=== PATIENT | male | born 1950 | race Caucasian/White ===

== ENCOUNTER 2017-06-15 07:42 | Inpatient (IN) | payer MEDICARE, BC ==
[2017-06-15] MEDS: ASPIRIN 325 MG TAB PO (10:39)
[2017-06-15] MEDS: ACETAMINOPHEN 325 MG TAB PO ×2 (10:39→17:56)
[2017-06-15 11:21] LABS: ADD MAN DIFF? NO
[2017-06-15 11:24] LABS: ABNORMAL IP MESSAGE 1; BASOPHILS % 0.2 % (0.0-2.0); HEMATOCRIT 38.4 % (42.0-52.0); HEMOGLOBIN 13.1 g/dl (14.0-18.0); LYMPHOCYTES # 0.6 10^3/ul (0.8-2.9); MEAN CORPUSCULAR HEMOGLOBIN 33.6 pg (29.0-33.0); MEAN CORPUSCULAR HGB CONC 34.1 g/dl (32.0-37.0); MEAN CORPUSCULAR VOLUME 98.5 fl (82.0-101.0); MEAN PLATELET VOLUME 12.2 fl (7.4-10.4); MONOCYTE # 1.4 10^3/ul (0.3-0.9); MONOCYTES % 9.3 % (0.0-11.0); NEUTROPHIL # 12.5 10^3/ul (1.6-7.5); NEUTROPHILS % 85.7 % (39.0-77.0); PLATELET COUNT 120 10^3/UL (140-415); POSITIVE DIFF @See below; RED CELL DISTRIBUTION WIDTH 13.2 % (11.5-14.5)
[2017-06-15 11:24] LABS: WHITE BLOOD COUNT 14.6 10^3/ul (4.8-10.8)
[2017-06-15 11:30] LABS: ADD UMIC YES; UR ASCORBIC ACID NEGATIVE (NEGATIVE); UR BACTERIA FEW /HPF (NONE SEEN); UR BILIRUBIN (Dip) NEGATIVE (NEGATIVE); UR BLOOD (Dip) 2+ mg/dL (NEGATIVE); UR CLARITY CLEAR (CLEAR); UR COLOR YELLOW (YELLOW); UR GLUCOSE (Dip) NEGATIVE (NEGATIVE); UR KETONES (Dip) NEGATIVE (NEGATIVE); UR LEUKOCYTE ESTERASE (Dip) NEGATIVE Leu/ul (NEGATIVE); UR NITRITE (Dip) NEGATIVE (NEGATIVE); UR RBC 2 /HPF (0-5); UR SPECIFIC GRAVITY (Dip) 1.009 (1.003-1.030); UR TOTAL PROTEIN (Dip) 2+ mg/dl (NEGATIVE); UR UROBILINOGEN (Dip) NEGATIVE (NEGATIVE); UR WBC 1 /HPF (0-5)
[2017-06-15] MEDS: CEFEPIME 2GM/50 ML (PMX) 50 ML IVPB (11:41)
[2017-06-15 11:43] LABS: INR 1.19; PROTIME 15.3 Sec (11.9-14.9); PT RATIO 1.2
[2017-06-15 11:44] LABS: LACTIC ACID 1.5 mmol/L (0.5-2.0)
[2017-06-15 11:44] LABS: PARTIAL THROMBOPLASTIN TIME 34.3 Sec (25.0-35.0)
[2017-06-15 11:46] LABS: ALANINE AMINOTRANSFERASE 40 IU/L (13-69); ALBUMIN 4.2 g/dl (3.3-4.9); ALBUMIN/GLOBULIN RATIO 1.23; ALKALINE PHOSPHATASE 76 IU/L (42-121); ANION GAP 19 (8-16); ASPARTATE AMINO TRANSFERASE 35 IU/L (15-46); BILIRUBIN,INDIRECT 0.2 mg/dl (0-1.1); BILIRUBIN,TOTAL 0.2 mg/dl (0.2-1.3); BLOOD UREA NITROGEN 76 mg/dl (7-20); CALCIUM 10.3 mg/dl (8.4-10.2); CARBON DIOXIDE 15 mmol/L (21-31); CHLORIDE 106 mmol/L (97-110); CREATININE 4.84 mg/dl (0.61-1.24); GLUCOSE 105 mg/dl (70-220); SODIUM 135 mmol/L (135-144); TOTAL PROTEIN 7.6 g/dl (6.1-8.1)
[2017-06-15 12:06] LABS: TROPONIN-I 0.914 ng/ml (0.00-0.12)
[2017-06-15] MEDS ORDERED: ENOXAPARIN 80 MG/0.8 ML SYG SC (12:30)
[2017-06-15] MEDS: VANCOMYCIN 1 GM (PMX) 250 ML IVPB (12:34)
[2017-06-15] MEDS ORDERED: ONDANSETRON 4 MG INJ IV (13:00)
[2017-06-15 13:23] LABS: LACTIC ACID 0.8 mmol/L (0.5-2.0)
[2017-06-15] MEDS ORDERED: HYDROCODONE/APAP (5/325) TAB PO (14:30)
[2017-06-15] MEDS ORDERED: DOCUSATE SODIUM 100 MG CAP PO (14:30)
[2017-06-15] MEDS ORDERED: NACL 0.9% 3 ML SYG IV (14:30)
[2017-06-15] MEDS ORDERED: ACETAMINOPHEN 325 MG TAB PO (14:30)
[2017-06-15] MEDS ORDERED: hydrALAzine 20 MG INJ IV (14:30)
[2017-06-15] MEDS ORDERED: MAGNESIUM HYDROXIDE 30ML CUP PO (14:30)
[2017-06-15] MEDS ORDERED: BISACODYL 10 MG SUPP PR (14:30)
[2017-06-15] MEDS ORDERED: ACETAMINOPHEN 650 MG SUPP PR (14:30)
[2017-06-15] MEDS ORDERED: morphine 2 MG INJ IV (14:30)
[2017-06-15] MEDS ORDERED: HEPARIN 1000 UNITS/ML 10 ML INJ IV (15:00)
[2017-06-15 16:27] LABS: LACTIC ACID 2.1 mmol/L (0.5-2.0)
[2017-06-15 16:37] LABS: CREATINE KINASE 544 IU/L (23-200)
[2017-06-15 16:48] LABS: CK INDEX 0.3; TROPONIN-I 0.997 ng/ml (0.00-0.12)
[2017-06-15 16:49] LABS: CK-MB 1.79 ng/ml (0.0-2.4)
[2017-06-15] MEDS: HEPARIN 1000 UNITS/ML 10 ML INJ IV (16:51)
[2017-06-15] MEDS: HEPARIN 25000 UNITS/250 ML 250 ML IV (18:03)
[2017-06-15] MEDS: SEVELAMER CARBONATE 0.8 GM PKT PO (18:05)
[2017-06-15 21:02] LABS: CREATINE KINASE 404 IU/L (23-200)
[2017-06-15 21:12] LABS: CK INDEX 0.4
[2017-06-15 21:13] LABS: CK-MB 1.45 ng/ml (0.0-2.4)
[2017-06-15] MEDS: AZITHROMYCIN 500MG/NS (PMX) 250 ML IVPB (21:47)
[2017-06-15] MEDS: CEFTRIAXONE 2 GM/50 ML (PMX) 50 ML IVPB (21:48)
[2017-06-15] MEDS: SOD CHLORIDE 0.9% 1,000 ML IV (21:49)
[2017-06-15] MEDS: TAMSULOSIN (SR) 0.4 MG CAP PO (21:50)
[2017-06-15] MEDS: ATORVASTATIN 20 MG TAB PO (21:50)
[2017-06-16] MEDS: SALMETEROL/FLUTICASONE 500/50 INHA INH ×3 (00:33→21:08)
[2017-06-16] MEDS: PANTOPRAZOLE (EC) 40 MG TAB PO (05:26)
[2017-06-16] MEDS: HYDROCODONE/APAP (5/325) TAB PO (05:33)
[2017-06-16 08:00] LABS: HEMOGLOBIN A1C 5.5 % (0-5.9)
[2017-06-16] MEDS: NEBIVOLOL 5 MG TAB PO (09:00)
[2017-06-16] MEDS ORDERED: VALSARTAN 160 MG TAB PO (09:00)
[2017-06-16] MEDS: AMLODIPINE 10 MG TAB PO (09:00)
[2017-06-16] MEDS ORDERED: NON-FORMULARY/PATIENT OWN MED (Esomeprazole Mag Trihydrate (Nexium) 40 MG) PO (09:00)
[2017-06-16 09:26] LABS: PARTIAL THROMBOPLASTIN TIME 83.2 Sec (25.0-35.0)
[2017-06-16] MEDS: ASPIRIN (EC) 81 MG TAB PO (09:39)
[2017-06-16] MEDS: SOLIFENACIN 5 MG TAB PO (09:39)
[2017-06-16] MEDS: HYDROXYCHLOROQUINE 200 MG TAB PO (09:39)
[2017-06-16] MEDS: ESCITALOPRAM 10 MG TAB PO (09:40)
[2017-06-16] MEDS: SEVELAMER CARBONATE 0.8 GM PKT PO ×3 (09:40→17:58)
[2017-06-16] MEDS: ALLOPURINOL 100 MG TAB PO (09:40)
[2017-06-16] MEDS: FEBUXOSTAT 40 MG TABLET PO (09:40)
[2017-06-16] MEDS: COLCHICINE 0.6 MG TAB PO (09:40)
[2017-06-16] MEDS: MULTIVIT/CA CARB/B CMPLX/FA TAB PO (09:40)
[2017-06-16] MEDS: FINASTERIDE 5 MG TAB PO (09:40)
[2017-06-16] MEDS: predniSONE 5 MG TAB PO (09:40)
[2017-06-16 09:50] LABS: ALANINE AMINOTRANSFERASE 69 IU/L (13-69); ALBUMIN 3.2 g/dl (3.3-4.9); ALBUMIN/GLOBULIN RATIO 1.06; ALKALINE PHOSPHATASE 56 IU/L (42-121); ANION GAP 19 (8-16); ASPARTATE AMINO TRANSFERASE 65 IU/L (15-46); BLOOD UREA NITROGEN 85 mg/dl (7-20); CALCIUM 9.9 mg/dl (8.4-10.2); CARBON DIOXIDE 15 mmol/L (21-31); CHLORIDE 107 mmol/L (97-110); CHOL/HDL RATIO 2.8 RATIO; CHOLESTEROL 141 mg/dl (100-200); GLUCOSE 107 mg/dl (70-220); HDL CHOLESTEROL 50 mg/dl (30-78); LDL CHOLESTEROL,CALCULATED 66 mg/dl; MAGNESIUM 1.9 mg/dl (1.7-2.5); PHOSPHORUS 4.7 mg/dl (2.5-4.9); SODIUM 136 mmol/L (135-144); TOTAL PROTEIN 6.2 g/dl (6.1-8.1); TRIGLYCERIDES 127 mg/dl (0-149)
[2017-06-16 09:53] LABS: POTASSIUM 5.4 mmol/L (3.5-5.1)
[2017-06-16 11:09] LABS: FREE THYROXINE INDEX (Calc) 2.81 ug/ml (0.65-3.89); T3 UPTAKE 44.6 % (23.5-40.5); T4 (THYROXINE) 6.3 ug/dl (5.5-11.0)
[2017-06-16 15:36] LABS: PARTIAL THROMBOPLASTIN TIME 43.9 Sec (25.0-35.0)
[2017-06-16] MEDS: METOPROLOL (XL) 25 MG TAB PO (15:59)
[2017-06-16] MEDS: SOD CHLORIDE 0.9% 1,000 ML IV (16:02)
[2017-06-16] MEDS ORDERED: ALBUTEROL/IPRATROPIUM (NEB) 3 ML AMP HHN (17:30)
[2017-06-16] MEDS: CEFTRIAXONE 2 GM/50 ML (PMX) 50 ML IVPB (17:58)
[2017-06-16] MEDS: ALBUTEROL/IPRATROPIUM (NEB) 3 ML AMP HHN (19:20)
[2017-06-16] MEDS: HEPARIN 5,000 UNIT/0.5 ML VIAL SC ×2 (21:00→21:09)
[2017-06-16] MEDS: TAMSULOSIN (SR) 0.4 MG CAP PO (21:08)
[2017-06-16] MEDS: ATORVASTATIN 20 MG TAB PO (21:08)
[2017-06-16] MEDS: AZITHROMYCIN 500MG/NS (PMX) 250 ML IVPB (21:11)
[2017-06-16] MEDS: ONDANSETRON 4 MG INJ IV (23:45)
[2017-06-16] MEDS: NA POLYST SULFON 15 GM/60 ML BTL PO (23:46)
[2017-06-17] MEDS: PANTOPRAZOLE (EC) 40 MG TAB PO (05:09)
[2017-06-17] MEDS: SOD CHLORIDE 0.9% 1,000 ML IV ×2 (05:10→21:40)
[2017-06-17] MEDS: ALBUTEROL/IPRATROPIUM (NEB) 3 ML AMP HHN ×3 (08:00→19:18)
[2017-06-17] MEDS: SALMETEROL/FLUTICASONE 500/50 INHA INH ×2 (09:37→21:56)
[2017-06-17] MEDS: SEVELAMER CARBONATE 0.8 GM PKT PO ×3 (09:37→17:41)
[2017-06-17] MEDS: FEBUXOSTAT 40 MG TABLET PO (09:37)
[2017-06-17 09:38] LABS: HEMOGLOBIN 10.9 g/dl (14.0-18.0); RED BLOOD COUNT 3.26 10^6/ul (4.70-6.10)
[2017-06-17 09:38] LABS: WHITE BLOOD COUNT 9.4 10^3/ul (4.8-10.8)
[2017-06-17] MEDS: predniSONE 5 MG TAB PO (09:38)
[2017-06-17] MEDS: ASPIRIN (EC) 81 MG TAB PO (09:38)
[2017-06-17] MEDS: SOLIFENACIN 5 MG TAB PO (09:38)
[2017-06-17] MEDS: COLCHICINE 0.6 MG TAB PO (09:38)
[2017-06-17] MEDS: ESCITALOPRAM 10 MG TAB PO (09:38)
[2017-06-17] MEDS: MULTIVIT/CA CARB/B CMPLX/FA TAB PO (09:38)
[2017-06-17] MEDS: FINASTERIDE 5 MG TAB PO (09:38)
[2017-06-17] MEDS: ALLOPURINOL 100 MG TAB PO (09:38)
[2017-06-17] MEDS: HYDROXYCHLOROQUINE 200 MG TAB PO (09:38)
[2017-06-17] MEDS: METOPROLOL (XL) 25 MG TAB PO ×2 (09:38→21:44)
[2017-06-17 09:39] LABS: ABNORMAL IP MESSAGE 1; HEMATOCRIT 32.6 % (42.0-52.0); MEAN CORPUSCULAR HEMOGLOBIN 33.4 pg (29.0-33.0); MEAN CORPUSCULAR HGB CONC 33.4 g/dl (32.0-37.0); MEAN PLATELET VOLUME 12.4 fl (7.4-10.4); PLATELET COUNT 105 10^3/UL (140-415); POSITIVE DIFF @See below; RED CELL DISTRIBUTION WIDTH 14.2 % (11.5-14.5)
[2017-06-17 09:40] LABS: ADD MAN DIFF? YES
[2017-06-17] MEDS: HEPARIN 5,000 UNIT/0.5 ML VIAL SC ×2 (09:40→21:46)
[2017-06-17 10:10] LABS: INR 1.22; PROTIME 15.6 Sec (11.9-14.9); PT RATIO 1.2
[2017-06-17 10:11] LABS: PARTIAL THROMBOPLASTIN TIME 41.6 Sec (25.0-35.0)
[2017-06-17 10:21] LABS: URIC ACID 6.2 mg/dl (3.1-7.9)
[2017-06-17 10:23] LABS: ANION GAP 20 (8-16); BLOOD UREA NITROGEN 96 mg/dl (7-20); CALCIUM 9.3 mg/dl (8.4-10.2); CARBON DIOXIDE 14 mmol/L (21-31); CHLORIDE 108 mmol/L (97-110); CREATININE 6.06 mg/dl (0.61-1.24); GLUCOSE 124 mg/dl (70-220); PHOSPHORUS 6.9 mg/dl (2.5-4.9); POTASSIUM 4.6 mmol/L (3.5-5.1); SODIUM 137 mmol/L (135-144)
[2017-06-17 10:28] LABS: TROPONIN-I 0.324 ng/ml (0.00-0.12)
[2017-06-17] MEDS: NA BICARBONATE 650 MG TAB PO ×2 (11:37→21:43)
[2017-06-17 13:09] LABS: BAND NEUTROPHILS #M 1.9 10^3/ul (0.0-0.6); BAND NEUTROPHILS % (M) 21 % (0-4); BURR CELLS 2+ (0-0); LYMPHOCYTES #M 0.5 10^3/ul (0.8-2.9); LYMPHOCYTES % (M) 6 % (15-51); MONOCYTE #M 1.1 10^3/ul (0.3-0.9); MONOCYTES % (M) 12 % (0-11); MYELOCYTES #M 0.1 10^3/ul (0.0-0.0); MYELOCYTES % (M) 2 % (0-0); OVALOCYTES 1+ (0-0); PLATELET ESTIMATE DECREASED; POIKILOCYTOSIS 2+ (0-0); POLYCHROMASIA 1+ (0-0); SEG NEUT #M 5.5 10^3/ul (1.7-7.5); SEGMENTED NEUTROPHILS (M) % 57 % (39-77); SMUDGE%M 9 % (0-0)
[2017-06-17] MEDS: METHYLPRED. NA SUCC 1,000 MG in DEXTROSE 5% 50 ML IVPB (17:41)
[2017-06-17] MEDS: CEFTRIAXONE 2 GM/50 ML (PMX) 50 ML IVPB (18:20)
[2017-06-17] MEDS: AZITHROMYCIN 500MG/NS (PMX) 250 ML IVPB (21:39)
[2017-06-17] MEDS: ATORVASTATIN 20 MG TAB PO (21:43)
[2017-06-17] MEDS: TAMSULOSIN (SR) 0.4 MG CAP PO (21:43)
[2017-06-18] MEDS: PANTOPRAZOLE (EC) 40 MG TAB PO (05:25)
[2017-06-18 08:19] LABS: ABNORMAL IP MESSAGE 1; HEMATOCRIT 33.5 % (42.0-52.0); HEMOGLOBIN 11.5 g/dl (14.0-18.0); MEAN CORPUSCULAR HEMOGLOBIN 33.6 pg (29.0-33.0); MEAN CORPUSCULAR HGB CONC 34.3 g/dl (32.0-37.0); MEAN PLATELET VOLUME 12.7 fl (7.4-10.4); PLATELET COUNT 127 10^3/UL (140-415); POSITIVE DIFF @See below; RED BLOOD COUNT 3.42 10^6/ul (4.70-6.10); RED CELL DISTRIBUTION WIDTH 14.5 % (11.5-14.5)
[2017-06-18 08:19] LABS: WHITE BLOOD COUNT 6.1 10^3/ul (4.8-10.8)
[2017-06-18 08:28] LABS: ADD MAN DIFF? YES
[2017-06-18 08:48] LABS: ANION GAP 23 (8-16); BLOOD UREA NITROGEN 100 mg/dl (7-20); CALCIUM 9.3 mg/dl (8.4-10.2); CARBON DIOXIDE 12 mmol/L (21-31); CHLORIDE 108 mmol/L (97-110); CREATININE 5.97 mg/dl (0.61-1.24); GLUCOSE 187 mg/dl (70-220); MAGNESIUM 1.9 mg/dl (1.7-2.5); PHOSPHORUS 7.1 mg/dl (2.5-4.9); POTASSIUM 4.4 mmol/L (3.5-5.1); SODIUM 139 mmol/L (135-144)
[2017-06-18] MEDS: ALBUTEROL/IPRATROPIUM (NEB) 3 ML AMP HHN ×3 (08:51→19:39)
[2017-06-18] MEDS: ONDANSETRON 4 MG INJ IV (08:59)
[2017-06-18 09:01] LABS: TROPONIN-I 0.222 ng/ml (0.00-0.12)
[2017-06-18] MEDS: SOD CHLORIDE 0.9% 1,000 ML IV ×2 (09:04→23:49)
[2017-06-18 09:43] LABS: ANISOCYTOSIS 1+ (0-0); BAND NEUTROPHILS #M 0.6 10^3/ul (0.0-0.6); BAND NEUTROPHILS % (M) 11 % (0-4); GIANT THROMBO% (M) 3 % (0-0); LYMPHOCYTES #M 0.2 10^3/ul (0.8-2.9); LYMPHOCYTES % (M) 4 % (15-51); MONOCYTES % (M) 1 % (0-11); PLATELET ESTIMATE NORMAL; POIKILOCYTOSIS 3+ (0-0); REACTIVE LYMPHOCYTES% (M) 1 % (0-0); SEG NEUT #M 5.1 10^3/ul (1.7-7.5); SEGMENTED NEUTROPHILS (M) % 83 % (39-77); SMUDGE%M 4 % (0-0)
[2017-06-18] MEDS: COLCHICINE 0.6 MG TAB PO (09:58)
[2017-06-18] MEDS: ALLOPURINOL 100 MG TAB PO (09:58)
[2017-06-18] MEDS: HYDROXYCHLOROQUINE 200 MG TAB PO (09:58)
[2017-06-18] MEDS: FEBUXOSTAT 40 MG TABLET PO (09:58)
[2017-06-18] MEDS: ESCITALOPRAM 10 MG TAB PO (09:58)
[2017-06-18] MEDS: predniSONE 5 MG TAB PO (09:58)
[2017-06-18] MEDS: ASPIRIN (EC) 81 MG TAB PO (09:58)
[2017-06-18] MEDS: FINASTERIDE 5 MG TAB PO (09:58)
[2017-06-18] MEDS: SALMETEROL/FLUTICASONE 500/50 INHA INH ×2 (09:59→21:17)
[2017-06-18] MEDS: MULTIVIT/CA CARB/B CMPLX/FA TAB PO (09:59)
[2017-06-18] MEDS: NA BICARBONATE 650 MG TAB PO ×2 (09:59→21:18)
[2017-06-18] MEDS: METOPROLOL (XL) 25 MG TAB PO ×2 (09:59→21:19)
[2017-06-18] MEDS: SOLIFENACIN 5 MG TAB PO (09:59)
[2017-06-18] MEDS: METHYLPRED. NA SUCC 500 MG in DEXTROSE 5% 50 ML IVPB (10:01)
[2017-06-18] MEDS: HEPARIN 5,000 UNIT/0.5 ML VIAL SC ×2 (10:06→21:20)
[2017-06-18 11:17] LABS: AADO2 Arterial 47.3 mmHg (7.0-24.0); Allen Test ACCEPTAB; Arterial Base Excess -13.3 mmol/L (-3.0-3); Arterial Blood Gas Oxygen Sat 93.9 mmHG (95.0-98.0); Arterial COHb 0.3 % (0.0-3.0); Arterial Fraction of Oxyhgb 93.3 % (93.0-99.0); Arterial HCO3 11.7 mmol/L (22.0-26.0); Arterial MetHb 0.3 % (0.0-1.5); Arterial Total Hemglobin 12.1 g/dl (12.0-18.0); Arterial pCO2 25.1 mmhg (35-45); MODE ROOM AIR; Site Left Radial
[2017-06-18] MEDS: predniSONE 10 MG TAB PO (13:14)
[2017-06-18] MEDS: SEVELAMER CARBONATE 2.4 GM PKT PO ×2 (13:14→17:05)
[2017-06-18] MEDS: LINEZOLID 600 MG/D5W (PMX) 300 ML IVPB ×2 (13:15→23:49)
[2017-06-18] MEDS: CEFEPIME 1GM/50 ML (PMX) 50 ML IVPB (16:58)
[2017-06-18] MEDS: TAMSULOSIN (SR) 0.4 MG CAP PO (21:18)
[2017-06-18] MEDS: ATORVASTATIN 20 MG TAB PO (21:18)
[2017-06-19] MEDS: PANTOPRAZOLE (EC) 40 MG TAB PO (06:08)
[2017-06-19 07:19] LABS: ADD MAN DIFF? NO
[2017-06-19 07:25] LABS: ABNORMAL IP MESSAGE 1; BASOPHILS % 0.1 % (0.0-2.0); HEMATOCRIT 31.3 % (42.0-52.0); HEMOGLOBIN 10.7 g/dl (14.0-18.0); LYMPHOCYTES # 0.2 10^3/ul (0.8-2.9); LYMPHOCYTES % 2.6 % (15.0-51.0); MEAN CORPUSCULAR HEMOGLOBIN 32.9 pg (29.0-33.0); MEAN CORPUSCULAR HGB CONC 34.2 g/dl (32.0-37.0); MEAN CORPUSCULAR VOLUME 96.3 fl (82.0-101.0); MEAN PLATELET VOLUME 12.7 fl (7.4-10.4); MONOCYTE # 0.3 10^3/ul (0.3-0.9); MONOCYTES % 3.7 % (0.0-11.0); NEUTROPHIL # 8.3 10^3/ul (1.6-7.5); NEUTROPHILS % 92.5 % (39.0-77.0); PLATELET COUNT 134 10^3/UL (140-415); POSITIVE DIFF @See below; RED BLOOD COUNT 3.25 10^6/ul (4.70-6.10); RED CELL DISTRIBUTION WIDTH 14.2 % (11.5-14.5)
[2017-06-19] MEDS: ALBUTEROL/IPRATROPIUM (NEB) 3 ML AMP HHN ×4 (07:30→20:25)
[2017-06-19 07:49] LABS: ANION GAP 23 (8-16); BLOOD UREA NITROGEN 106 mg/dl (7-20); CALCIUM 8.9 mg/dl (8.4-10.2); CARBON DIOXIDE 13 mmol/L (21-31); CHLORIDE 108 mmol/L (97-110); CREATININE 6.45 mg/dl (0.61-1.24); GLUCOSE 177 mg/dl (70-220); MAGNESIUM 1.8 mg/dl (1.7-2.5); PHOSPHORUS 7.7 mg/dl (2.5-4.9); POTASSIUM 3.9 mmol/L (3.5-5.1); SODIUM 140 mmol/L (135-144)
[2017-06-19] MEDS: HEPARIN 5,000 UNIT/0.5 ML VIAL SC ×2 (08:28→21:05)
[2017-06-19] MEDS: LINEZOLID 600 MG/D5W (PMX) 300 ML IVPB ×2 (08:28→21:03)
[2017-06-19] MEDS: predniSONE 10 MG TAB PO (08:30)
[2017-06-19] MEDS: ESCITALOPRAM 10 MG TAB PO (08:30)
[2017-06-19] MEDS: predniSONE 5 MG TAB PO (08:30)
[2017-06-19] MEDS: MULTIVIT/CA CARB/B CMPLX/FA TAB PO (08:30)
[2017-06-19] MEDS: HYDROXYCHLOROQUINE 200 MG TAB PO (08:30)
[2017-06-19] MEDS: COLCHICINE 0.6 MG TAB PO (08:30)
[2017-06-19] MEDS: SOLIFENACIN 5 MG TAB PO (08:31)
[2017-06-19] MEDS: FINASTERIDE 5 MG TAB PO (08:31)
[2017-06-19] MEDS: NA BICARBONATE 650 MG TAB PO ×4 (08:31→21:03)
[2017-06-19] MEDS: ALLOPURINOL 100 MG TAB PO (08:31)
[2017-06-19] MEDS: SEVELAMER CARBONATE 2.4 GM PKT PO ×3 (08:31→17:08)
[2017-06-19] MEDS: FEBUXOSTAT 40 MG TABLET PO (08:31)
[2017-06-19] MEDS: ASPIRIN (EC) 81 MG TAB PO (08:31)
[2017-06-19] MEDS: METOPROLOL (XL) 25 MG TAB PO (08:32)
[2017-06-19] MEDS: SALMETEROL/FLUTICASONE 500/50 INHA INH ×2 (08:32→21:04)
[2017-06-19] MEDS: METOPROLOL 25 MG TAB PO (17:00)
[2017-06-19] MEDS: CEFEPIME 1GM/50 ML (PMX) 50 ML IVPB (17:00)
[2017-06-19] MEDS: ATORVASTATIN 20 MG TAB PO (21:03)
[2017-06-19] MEDS: TAMSULOSIN (SR) 0.4 MG CAP PO (21:03)
[2017-06-20] MEDS: PANTOPRAZOLE (EC) 40 MG TAB PO (05:14)
[2017-06-20] MEDS: SALMETEROL/FLUTICASONE 500/50 INHA INH ×2 (08:19→20:36)
[2017-06-20] MEDS: SEVELAMER CARBONATE 2.4 GM PKT PO ×3 (08:20→17:24)
[2017-06-20] MEDS: predniSONE 10 MG TAB PO (08:20)
[2017-06-20] MEDS: HEPARIN 5,000 UNIT/0.5 ML VIAL SC ×2 (08:20→20:35)
[2017-06-20] MEDS: predniSONE 5 MG TAB PO (08:20)
[2017-06-20] MEDS: METOPROLOL 25 MG TAB PO ×4 (08:21→23:46)
[2017-06-20] MEDS: COLCHICINE 0.6 MG TAB PO (08:21)
[2017-06-20] MEDS: ALLOPURINOL 100 MG TAB PO (08:21)
[2017-06-20] MEDS: ESCITALOPRAM 10 MG TAB PO (08:21)
[2017-06-20] MEDS: MULTIVIT/CA CARB/B CMPLX/FA TAB PO (08:21)
[2017-06-20] MEDS: FINASTERIDE 5 MG TAB PO (08:21)
[2017-06-20] MEDS: HYDROXYCHLOROQUINE 200 MG TAB PO (08:21)
[2017-06-20] MEDS: ASPIRIN (EC) 81 MG TAB PO (08:21)
[2017-06-20] MEDS: SOLIFENACIN 5 MG TAB PO (08:22)
[2017-06-20] MEDS: NA BICARBONATE 650 MG TAB PO ×3 (08:22→20:37)
[2017-06-20] MEDS: FEBUXOSTAT 40 MG TABLET PO (08:22)
[2017-06-20] MEDS: LINEZOLID 600 MG/D5W (PMX) 300 ML IVPB ×2 (08:30→20:38)
[2017-06-20] MEDS: ALBUTEROL/IPRATROPIUM (NEB) 3 ML AMP HHN ×3 (08:46→19:05)
[2017-06-20 09:04] LABS: ADD MAN DIFF? NO
[2017-06-20 09:12] LABS: ABNORMAL IP MESSAGE 1; BASOPHILS % 0.1 % (0.0-2.0); HEMATOCRIT 30.9 % (42.0-52.0); LYMPHOCYTES # 0.2 10^3/ul (0.8-2.9); LYMPHOCYTES % 1.8 % (15.0-51.0); MEAN CORPUSCULAR HEMOGLOBIN 33.3 pg (29.0-33.0); MEAN CORPUSCULAR HGB CONC 35.6 g/dl (32.0-37.0); MEAN CORPUSCULAR VOLUME 93.6 fl (82.0-101.0); MEAN PLATELET VOLUME 12.5 fl (7.4-10.4); MONOCYTE # 0.6 10^3/ul (0.3-0.9); MONOCYTES % 4.4 % (0.0-11.0); NEUTROPHILS % 92.5 % (39.0-77.0); PLATELET COUNT 199 10^3/UL (140-415); POSITIVE DIFF @See below; RED CELL DISTRIBUTION WIDTH 13.9 % (11.5-14.5)
[2017-06-20 09:29] LABS: ANION GAP 22 (8-16); BLOOD UREA NITROGEN 120 mg/dl (7-20); CARBON DIOXIDE 16 mmol/L (21-31); CHLORIDE 105 mmol/L (97-110); CREATININE 6.09 mg/dl (0.61-1.24); GLUCOSE 135 mg/dl (70-220); MAGNESIUM 1.7 mg/dl (1.7-2.5); PHOSPHORUS 6.9 mg/dl (2.5-4.9); POTASSIUM 3.9 mmol/L (3.5-5.1); SODIUM 139 mmol/L (135-144)
[2017-06-20] MEDS: CEFEPIME 1GM/50 ML (PMX) 50 ML IVPB (15:53)
[2017-06-20] MEDS: ATORVASTATIN 20 MG TAB PO (20:36)
[2017-06-20] MEDS: TAMSULOSIN (SR) 0.4 MG CAP PO (20:37)
[2017-06-21 03:56] LABS: ADD UMIC YES; UR ASCORBIC ACID NEGATIVE (NEGATIVE); UR BILIRUBIN (Dip) NEGATIVE (NEGATIVE); UR BLOOD (Dip) 2+ mg/dL (NEGATIVE); UR CLARITY CLEAR (CLEAR); UR COLOR STRAW (YELLOW); UR GLUCOSE (Dip) NEGATIVE (NEGATIVE); UR KETONES (Dip) NEGATIVE (NEGATIVE); UR LEUKOCYTE ESTERASE (Dip) NEGATIVE Leu/ul (NEGATIVE); UR NITRITE (Dip) NEGATIVE (NEGATIVE); UR RBC 38 /HPF (0-5); UR SPECIFIC GRAVITY (Dip) 1.008 (1.003-1.030); UR TOTAL PROTEIN (Dip) NEGATIVE (NEGATIVE); UR UROBILINOGEN (Dip) NEGATIVE (NEGATIVE); UR WBC 1 /HPF (0-5)
[2017-06-21 04:12] LABS: SODIUM,URINE RANDOM 101 mmol/L (30-90)
[2017-06-21 04:12] LABS: CREATININE,URINE RANDOM 29.82 mg/dl (20-370)
[2017-06-21 06:13] LABS: ADD MAN DIFF? NO
[2017-06-21] MEDS: PANTOPRAZOLE (EC) 40 MG TAB PO (06:25)
[2017-06-21 06:45] LABS: ALANINE AMINOTRANSFERASE 177 IU/L (13-69); ALBUMIN 3.3 g/dl (3.3-4.9); ALBUMIN/GLOBULIN RATIO 1.22; ALKALINE PHOSPHATASE 95 IU/L (42-121); ANION GAP 19 (8-16); ASPARTATE AMINO TRANSFERASE 97 IU/L (15-46); CARBON DIOXIDE 19 mmol/L (21-31); CHLORIDE 105 mmol/L (97-110); CREATININE 6.06 mg/dl (0.61-1.24); GLUCOSE 122 mg/dl (70-220); POTASSIUM 3.9 mmol/L (3.5-5.1); SODIUM 139 mmol/L (135-144)
[2017-06-21 06:46] LABS: MAGNESIUM 1.5 mg/dl (1.7-2.5)
[2017-06-21 06:46] LABS: PHOSPHORUS 5.9 mg/dl (2.5-4.9)
[2017-06-21 06:56] LABS: BLOOD UREA NITROGEN 117 mg/dl (7-20)
[2017-06-21 07:11] LABS: WHITE BLOOD COUNT 12.1 10^3/ul (4.8-10.8)
[2017-06-21 07:11] LABS: ABNORMAL IP MESSAGE 1; BASOPHILS % 0.2 % (0.0-2.0); HEMATOCRIT 31.5 % (42.0-52.0); HEMOGLOBIN 11.2 g/dl (14.0-18.0); LYMPHOCYTES # 0.4 10^3/ul (0.8-2.9); LYMPHOCYTES % 2.9 % (15.0-51.0); MEAN CORPUSCULAR HEMOGLOBIN 33.2 pg (29.0-33.0); MEAN CORPUSCULAR HGB CONC 35.6 g/dl (32.0-37.0); MEAN CORPUSCULAR VOLUME 93.5 fl (82.0-101.0); MEAN PLATELET VOLUME 12.3 fl (7.4-10.4); MONOCYTE # 0.9 10^3/ul (0.3-0.9); MONOCYTES % 7.5 % (0.0-11.0); NEUTROPHIL # 10.6 10^3/ul (1.6-7.5); NEUTROPHILS % 87.3 % (39.0-77.0); PLATELET COUNT 222 10^3/UL (140-415); POSITIVE DIFF @See below; RED BLOOD COUNT 3.37 10^6/ul (4.70-6.10); RED CELL DISTRIBUTION WIDTH 13.9 % (11.5-14.5)
[2017-06-21] MEDS: ALBUTEROL/IPRATROPIUM (NEB) 3 ML AMP HHN ×3 (07:33→19:13)
[2017-06-21] MEDS: NA BICARBONATE 650 MG TAB PO ×3 (09:18→20:33)
[2017-06-21] MEDS: COLCHICINE 0.6 MG TAB PO (09:18)
[2017-06-21] MEDS: SOLIFENACIN 5 MG TAB PO (09:18)
[2017-06-21] MEDS: FEBUXOSTAT 40 MG TABLET PO (09:18)
[2017-06-21] MEDS: MULTIVIT/CA CARB/B CMPLX/FA TAB PO (09:18)
[2017-06-21] MEDS: ALLOPURINOL 100 MG TAB PO (09:18)
[2017-06-21] MEDS: HYDROXYCHLOROQUINE 200 MG TAB PO (09:19)
[2017-06-21] MEDS: predniSONE 10 MG TAB PO (09:19)
[2017-06-21] MEDS: ESCITALOPRAM 10 MG TAB PO (09:19)
[2017-06-21] MEDS: predniSONE 5 MG TAB PO (09:19)
[2017-06-21] MEDS: SALMETEROL/FLUTICASONE 500/50 INHA INH ×2 (09:19→20:32)
[2017-06-21] MEDS: FINASTERIDE 5 MG TAB PO (09:19)
[2017-06-21] MEDS: SEVELAMER CARBONATE 2.4 GM PKT PO ×3 (09:19→18:33)
[2017-06-21] MEDS: HEPARIN 5,000 UNIT/0.5 ML VIAL SC ×2 (09:21→20:34)
[2017-06-21] MEDS: ASPIRIN (EC) 81 MG TAB PO (09:22)
[2017-06-21] MEDS: METOPROLOL 25 MG TAB PO ×2 (09:23→16:27)
[2017-06-21] MEDS: LINEZOLID 600 MG/D5W (PMX) 300 ML IVPB ×2 (09:23→20:33)
[2017-06-21 11:13] LABS: URIC ACID 5.3 mg/dl (3.1-7.9)
[2017-06-21] MEDS: CEFEPIME 1GM/50 ML (PMX) 50 ML IVPB (16:27)
[2017-06-21] MEDS: ATORVASTATIN 20 MG TAB PO (20:33)
[2017-06-21] MEDS: TAMSULOSIN (SR) 0.4 MG CAP PO (20:33)
[2017-06-22 06:27] LABS: ADD MAN DIFF? NO
[2017-06-22 06:28] LABS: ABNORMAL IP MESSAGE 1; BASOPHILS % 0.3 % (0.0-2.0); EOSINOPHILS % 0.1 % (0.0-7.0); HEMATOCRIT 34.4 % (42.0-52.0); HEMOGLOBIN 12.2 g/dl (14.0-18.0); LYMPHOCYTES # 0.6 10^3/ul (0.8-2.9); MEAN CORPUSCULAR HEMOGLOBIN 33.2 pg (29.0-33.0); MEAN CORPUSCULAR HGB CONC 35.5 g/dl (32.0-37.0); MEAN CORPUSCULAR VOLUME 93.5 fl (82.0-101.0); MEAN PLATELET VOLUME 11.7 fl (7.4-10.4); MONOCYTE # 0.9 10^3/ul (0.3-0.9); MONOCYTES % 7.4 % (0.0-11.0); NEUTROPHILS % 83.7 % (39.0-77.0); PLATELET COUNT 271 10^3/UL (140-415); POSITIVE DIFF @See below; RED BLOOD COUNT 3.68 10^6/ul (4.70-6.10); RED CELL DISTRIBUTION WIDTH 13.6 % (11.5-14.5)
[2017-06-22 06:28] LABS: WHITE BLOOD COUNT 11.9 10^3/ul (4.8-10.8)
[2017-06-22] MEDS: PANTOPRAZOLE (EC) 40 MG TAB PO (06:37)
[2017-06-22 06:58] LABS: PHOSPHORUS 5.2 mg/dl (2.5-4.9)
[2017-06-22 06:58] LABS: MAGNESIUM 1.5 mg/dl (1.7-2.5)
[2017-06-22 07:53] LABS: ANION GAP 19 (8-16); CARBON DIOXIDE 22 mmol/L (21-31); CHLORIDE 103 mmol/L (97-110); GLUCOSE 110 mg/dl (70-220); POTASSIUM 4.2 mmol/L (3.5-5.1); SODIUM 140 mmol/L (135-144)
[2017-06-22 07:54] LABS: BLOOD UREA NITROGEN 122 mg/dl (7-20); CALCIUM 9.7 mg/dl (8.4-10.2); CREATININE 5.28 mg/dl (0.61-1.24)
[2017-06-22] MEDS: ALBUTEROL/IPRATROPIUM (NEB) 3 ML AMP HHN ×3 (08:30→19:45)
[2017-06-22] MEDS: SALMETEROL/FLUTICASONE 500/50 INHA INH ×2 (08:47→20:18)
[2017-06-22] MEDS: SOLIFENACIN 5 MG TAB PO (08:47)
[2017-06-22] MEDS: MULTIVIT/CA CARB/B CMPLX/FA TAB PO (08:47)
[2017-06-22] MEDS: NA BICARBONATE 650 MG TAB PO ×3 (08:48→20:18)
[2017-06-22] MEDS: METOPROLOL 25 MG TAB PO ×3 (08:48→17:31)
[2017-06-22] MEDS: ASPIRIN (EC) 81 MG TAB PO (08:48)
[2017-06-22] MEDS: HYDROXYCHLOROQUINE 200 MG TAB PO (08:48)
[2017-06-22] MEDS: FINASTERIDE 5 MG TAB PO (08:48)
[2017-06-22] MEDS: predniSONE 5 MG TAB PO (08:48)
[2017-06-22] MEDS: SEVELAMER CARBONATE 2.4 GM PKT PO ×3 (08:49→17:31)
[2017-06-22] MEDS: HEPARIN 5,000 UNIT/0.5 ML VIAL SC ×2 (08:49→20:17)
[2017-06-22] MEDS: ESCITALOPRAM 10 MG TAB PO (08:49)
[2017-06-22] MEDS: predniSONE 10 MG TAB PO (08:49)
[2017-06-22] MEDS: LINEZOLID 600 MG/D5W (PMX) 300 ML IVPB ×2 (09:11→20:18)
[2017-06-22] MEDS: MAGNESIUM SULFATE 2 GM/50 ML 50 ML IVPB (13:20)
[2017-06-22] MEDS: CEFEPIME 1GM/50 ML (PMX) 50 ML IVPB (17:31)
[2017-06-22] MEDS: ATORVASTATIN 20 MG TAB PO (20:17)
[2017-06-22] MEDS: TAMSULOSIN (SR) 0.4 MG CAP PO (20:18)
[2017-06-23] MEDS: METOPROLOL 25 MG TAB PO ×3 (00:15→21:36)
[2017-06-23] MEDS: PANTOPRAZOLE (EC) 40 MG TAB PO (06:27)
[2017-06-23 07:45] LABS: ADD MAN DIFF? NO
[2017-06-23 07:50] LABS: WHITE BLOOD COUNT 12.5 10^3/ul (4.8-10.8)
[2017-06-23 07:50] LABS: BASOPHILS % 0.3 % (0.0-2.0); EOSINOPHILS # 0.1 10^3/ul (0.0-0.5); EOSINOPHILS % 0.7 % (0.0-7.0); HEMATOCRIT 35.9 % (42.0-52.0); HEMOGLOBIN 12.7 g/dl (14.0-18.0); MEAN CORPUSCULAR HEMOGLOBIN 33.4 pg (29.0-33.0); MEAN CORPUSCULAR HGB CONC 35.4 g/dl (32.0-37.0); MEAN CORPUSCULAR VOLUME 94.5 fl (82.0-101.0); MEAN PLATELET VOLUME 11.5 fl (7.4-10.4); MONOCYTES % 8.1 % (0.0-11.0); PLATELET COUNT 275 10^3/UL (140-415); POSITIVE DIFF @See below; RED CELL DISTRIBUTION WIDTH 13.8 % (11.5-14.5)
[2017-06-23] MEDS: ALBUTEROL/IPRATROPIUM (NEB) 3 ML AMP HHN ×3 (08:10→19:13)
[2017-06-23 08:13] LABS: PHOSPHORUS 4.6 mg/dl (2.5-4.9)
[2017-06-23 08:13] LABS: MAGNESIUM 2.1 mg/dl (1.7-2.5)
[2017-06-23] MEDS: SEVELAMER CARBONATE 2.4 GM PKT PO ×3 (08:14→17:28)
[2017-06-23] MEDS: SALMETEROL/FLUTICASONE 500/50 INHA INH ×2 (08:14→21:35)
[2017-06-23] MEDS: LINEZOLID 600 MG/D5W (PMX) 300 ML IVPB ×2 (08:15→21:48)
[2017-06-23] MEDS: HEPARIN 5,000 UNIT/0.5 ML VIAL SC ×2 (08:16→21:38)
[2017-06-23] MEDS: MULTIVIT/CA CARB/B CMPLX/FA TAB PO (08:17)
[2017-06-23] MEDS: FINASTERIDE 5 MG TAB PO (08:17)
[2017-06-23] MEDS: ASPIRIN (EC) 81 MG TAB PO (08:17)
[2017-06-23] MEDS: NA BICARBONATE 650 MG TAB PO ×3 (08:17→21:45)
[2017-06-23] MEDS: HYDROXYCHLOROQUINE 200 MG TAB PO (08:17)
[2017-06-23] MEDS: ESCITALOPRAM 10 MG TAB PO (08:17)
[2017-06-23] MEDS: predniSONE 10 MG TAB PO (08:17)
[2017-06-23 08:18] LABS: ANION GAP 19 (8-16); CALCIUM 9.8 mg/dl (8.4-10.2); CARBON DIOXIDE 24 mmol/L (21-31); CHLORIDE 100 mmol/L (97-110); GLUCOSE 95 mg/dl (70-220); SODIUM 138 mmol/L (135-144)
[2017-06-23] MEDS: SOLIFENACIN 5 MG TAB PO (08:18)
[2017-06-23 08:27] LABS: BLOOD UREA NITROGEN 116 mg/dl (7-20)
[2017-06-23 16:16] LABS: CREATININE, RANDOM URINE 35 mg/dL (20-370); MICROALBUMIN 6.1 mg/dL; MICROALBUMIN/CREATININE RATIO 174 (<30)
[2017-06-23] MEDS: CEFEPIME 1GM/50 ML (PMX) 50 ML IVPB (17:28)
[2017-06-23] MEDS: TAMSULOSIN (SR) 0.4 MG CAP PO (21:37)
[2017-06-23] MEDS: ATORVASTATIN 20 MG TAB PO (21:37)
[2017-06-24 06:32] LABS: ADD MAN DIFF? NO
[2017-06-24] MEDS: PANTOPRAZOLE (EC) 40 MG TAB PO (06:39)
[2017-06-24 06:41] LABS: BASOPHILS % 0.3 % (0.0-2.0); EOSINOPHILS # 0.2 10^3/ul (0.0-0.5); EOSINOPHILS % 1.7 % (0.0-7.0); HEMOGLOBIN 12.7 g/dl (14.0-18.0); MEAN CORPUSCULAR HEMOGLOBIN 33.1 pg (29.0-33.0); MEAN CORPUSCULAR HGB CONC 34.3 g/dl (32.0-37.0); MEAN CORPUSCULAR VOLUME 96.4 fl (82.0-101.0); MEAN PLATELET VOLUME 11.5 fl (7.4-10.4); MONOCYTE # 0.9 10^3/ul (0.3-0.9); MONOCYTES % 7.9 % (0.0-11.0); NEUTROPHIL # 8.9 10^3/ul (1.6-7.5); PLATELET COUNT 255 10^3/UL (140-415); RED BLOOD COUNT 3.84 10^6/ul (4.70-6.10); RED CELL DISTRIBUTION WIDTH 13.4 % (11.5-14.5)
[2017-06-24 06:41] LABS: WHITE BLOOD COUNT 11.5 10^3/ul (4.8-10.8)
[2017-06-24 07:18] LABS: ANION GAP 17 (8-16); BLOOD UREA NITROGEN 118 mg/dl (7-20); CALCIUM 9.6 mg/dl (8.4-10.2); CARBON DIOXIDE 25 mmol/L (21-31); CHLORIDE 99 mmol/L (97-110); CREATININE 4.61 mg/dl (0.61-1.24); GLUCOSE 99 mg/dl (70-220); POTASSIUM 4.8 mmol/L (3.5-5.1); SODIUM 136 mmol/L (135-144)
[2017-06-24 07:20] LABS: PHOSPHORUS 4.7 mg/dl (2.5-4.9)
[2017-06-24] MEDS: SEVELAMER CARBONATE 2.4 GM PKT PO ×2 (08:00→12:00)
[2017-06-24] MEDS: ALBUTEROL/IPRATROPIUM (NEB) 3 ML AMP HHN (08:19)
[2017-06-24] MEDS: METOPROLOL 25 MG TAB PO (09:00)
[2017-06-24] MEDS: NA BICARBONATE 650 MG TAB PO ×2 (09:00→13:00)
[2017-06-24] MEDS: SALMETEROL/FLUTICASONE 500/50 INHA INH (09:11)
[2017-06-24] MEDS: HYDROXYCHLOROQUINE 200 MG TAB PO (09:12)
[2017-06-24] MEDS: ESCITALOPRAM 10 MG TAB PO (09:12)
[2017-06-24] MEDS: ASPIRIN (EC) 81 MG TAB PO (09:12)
[2017-06-24] MEDS: SOLIFENACIN 5 MG TAB PO (09:13)
[2017-06-24] MEDS: predniSONE 10 MG TAB PO (09:13)
[2017-06-24] MEDS: MULTIVIT/CA CARB/B CMPLX/FA TAB PO (09:13)
[2017-06-24] MEDS: FINASTERIDE 5 MG TAB PO (09:13)
[2017-06-24] MEDS: HEPARIN 5,000 UNIT/0.5 ML VIAL SC (09:15)
[2017-06-24] MEDS: LINEZOLID 600 MG/D5W (PMX) 300 ML IVPB (09:16)
== END 2017-06-24 13:32 | disposition home health service (06) | DRG 871 ==
LOC: FTE 07:42 → MS4 12:38
DX: A41.9 Sepsis, unspecified organism (principal); J18.9 Pneumonia, unspecified organism; I21.A1 Myocardial infarction type 2; N17.0 Acute kidney failure with tubular necrosis; E87.2 Acidosis; N18.4 Chronic kidney disease, stage 4 (severe); I69.351 Hemiplegia and hemiparesis following cerebral infarction affecting right dominant side; I47.1 Supraventricular tachycardia; E87.1 Hypo-osmolality and hyponatremia; J44.9 Chronic obstructive pulmonary disease, unspecified; E87.5 Hyperkalemia; I12.9 Hypertensive chronic kidney disease with stage 1 through stage 4 chronic kidney disease, or unspecified chronic kidney disease; N40.1 Benign prostatic hyperplasia with lower urinary tract symptoms; R35.0 Frequency of micturition; F32.9 Major depressive disorder, single episode, unspecified; E78.5 Hyperlipidemia, unspecified; M1A.9XX0 Chronic gout, unspecified, without tophus (tophi); D86.9 Sarcoidosis, unspecified; E87.6 Hypokalemia; D64.9 Anemia, unspecified; D86.0 Sarcoidosis of lung; I35.0 Nonrheumatic aortic (valve) stenosis; Z87.891 Personal history of nicotine dependence
CPT/HCPCS: 36415; 36600; 70450; 70551; 71045; 71250; 76775; 80048; 80053; 80061; 81001; 81003; 82043; 82550; 82553; 82803; 82962; 83036; 83605; 83735; 84100; 84155; 84300; 84436; 84443; 84479; 84484; 84560; 85025; 85610; 85730; 87040; 87081; 87086; 87400; 93005; 93306; 94640; 94664; 96365; 96366; 96367; 96375; 97116; 97163; 97530; 99291-25